=== PATIENT | female | born 1945 | race Caucasian/White ===

== ENCOUNTER 2017-03-11 07:12 | Day surgery (SDC) | payer MEDICARE, OTHER ==
[~2017-03-11] VITALS: Ht 162.6 cm; Wt 73.6 kg
[2017-03-11 07:19] LABS: BASOPHILS 0.4 % (0-2); EOSINOPHILS 4.4 % (0-7); HEMATOCRIT 35.9 % (36.0-48.0); HEMOGLOBIN 11.7 g/dL (12-16); MCH 29.8 pg (26.0-34.0); MCHC 32.6 g/dL (31.0-37.0); MCV 91.6 fL (80.0-100.0); MEAN PLATELET VOLUME 9.3 fL (7.4-10.4); NEUTROPHILS 54.2 % (40-80); RBC 3.92 10x6/uL (4.00-5.40); WBC 5.2 10x3/uL (4.8-10.8)
[2017-03-11 07:33] LABS: ALBUMIN 3.3 g/dL (3.4-5.0); ANION GAP 9.9 mmol/L (8-16); BILIRUBIN - TOTAL 0.19 mg/dL (0.2-1.3); CALCIUM 8.7 mg/dL (8.5-10.1); CARBON DIOXIDE 29.6 mmol/L (21.0-32.0); CREATININE - SERUM 1.1 mg/dL (0.6-1.3); POTASSIUM - SERUM 4.5 mmol/L (3.5-5.1); PROTEIN - SERUM 6.5 g/dL (6.4-8.2)
[2017-03-11 07:34] LABS: PLATELET COUNT 139 10x3/uL (130-400)
[2017-03-11 08:29] VITALS: BP 147/73
--- NOTE | 2017-03-11 09:26 | NUR ---
RECIEVED TO ROOM FROM ER VIA STRETCHER WITH ARM STABALIZED HAS NOTED LEFT HUMERAL FRACTURE. FOR OR IN AM WITH DR PISANO PT GIVEN DILAUDED LOCK PLATER PER ORDER. ORINETED TO ROOM AND STAFF CALL LIGHT INREACH SIDE RAILS UP X 2 BED ALARM ON.
[2017-03-11 12:34] VITALS: BP 164/78
[2017-03-11 15:32] VITALS: BP 164/78; Ht 162.6 cm; Wt 73.6 kg
[2017-03-11 16:03] VITALS: BP 153/60
--- NOTE | 2017-03-11 18:49 | NUR ---
PT RESTING WELL AT [facility] HAS ORDER FOR SLING TO LEFT ARM WILL PLACE PER ORDER
[2017-03-11 20:00] VITALS: BP 151/86
--- NOTE | 2017-03-11 21:35 | NUR ---
PATIENT DROPPED HER MEDICATIONS ON THE FLOOR WHEN SHE WAS TAKING HER EVENING MEDS. I PULLED NEW MEDS FROM THE PYXIS AND ADMINISTERED THEM. ASSISTED THE PATIENT ON AND OFF THE BEDPAN AND REPOSITIONED HER IN THE BED WITH ALISE CARTER. I ALSO CHECKED THE PATIENT'S BLOOD SUGAR, RESULTS 161. PATIENT REFUSED HER INSULIN. PATIENT'S BED IN LOWEST POSITION, CALL LIGHT WITHIN REACH, AND BED ALARM ON. ENCOURAGED THE PATIENT TO CALL IF SHE HAS FURTHER NEEDS.
[2017-03-12] VITALS: BP 144/78
[2017-03-12] MEDS ORDERED: HYDROCODON-ACE1 EAC9 PO (03:07)
[2017-03-12] MEDS ORDERED: NEURONTIN600 MG PO (03:07)
[2017-03-12] MEDS ORDERED: NEXIUM20 MG PO (03:09)
[2017-03-12] MEDS ORDERED: GLUCOPHAGE500 MG PO (03:12)
[2017-03-12] MEDS ORDERED: GLIPIZIDE10 MG PO (03:14)
[2017-03-12] MEDS ORDERED: PAXIL20 MG PO (03:14)
[2017-03-12] MEDS ORDERED: LIBRIUM 10 MG C10 MG PO (03:15)
[2017-03-12] MEDS ORDERED: ECOTRIN325 MG PO (03:18)
[2017-03-12] MEDS ORDERED: FISH OIL 1,2001 CAP PO (03:18)
[2017-03-12] MEDS ORDERED: PROTONIX20 MG PO (03:19)
[2017-03-12] MEDS ORDERED: CITRACAL + D E1 EACH PO (03:20)
[2017-03-12] MEDS ORDERED: FOLBIC RF TABL1 EACH PO (03:24)
[2017-03-12] MEDS ORDERED: LOTREL 5/10 MG1 CAP PO (03:26)
[2017-03-12 04:00] VITALS: BP 150/73
[2017-03-12 06:31] LABS: BASOPHILS 0.3 % (0-2); HEMATOCRIT 33.7 % (36.0-48.0); IMMATURE GRANULOCYTES 0.3 % (0-5); LYMPHOCYTES 27.4 % (15-50); MCH 29.7 pg (26.0-34.0); MCHC 32.6 g/dL (31.0-37.0); MCV 91.1 fL (80.0-100.0); MEAN PLATELET VOLUME 9.7 fL (7.4-10.4); MONOCYTES 9.9 % (2-11); NEUTROPHILS 59.1 % (40-80); PLATELET COUNT 142 10x3/uL (130-400); RDW 13.6 % (11.5-14.5); WBC 6.2 10x3/uL (4.8-10.8)
[2017-03-12 07:00] LABS: ANION GAP 10.2 mmol/L (8-16); CALCIUM 8.4 mg/dL (8.5-10.1); CARBON DIOXIDE 28.2 mmol/L (21.0-32.0); CREATININE - SERUM 0.9 mg/dL (0.6-1.3); POTASSIUM - SERUM 4.4 mmol/L (3.5-5.1)
[2017-03-12 07:50] VITALS: BP 110/88
--- NOTE | 2017-03-12 07:50 | NUR ---
PT ASSESSMENT COMPLETE ASSISTED UP TO BATHROOM TO VOID AT THIS TIME. PAIN TOLERATED WELL WITH DILAUDID HOUSE BUILDER NPO FOR OR TODAY WITH DR PISANO FOR HUMERAL NAILING
--- NOTE | 2017-03-12 13:26 | NUR ---
MAGDALENA RELEIVED KAMARI AT 1320.
--- NOTE | 2017-03-12 14:33 | NUR ---
DR. Phan CONSULTED ABOUT BLOOD PRESSURE. NO TREATMENT AT THIS TIME.
[2017-03-12 14:46] VITALS: BP 150/80
--- NOTE | 2017-03-12 15:03 | NUR ---
RECIEVED TO ROOM 2228 VIA BED FROM RR PT AROUSED TO VERBAL STIMULI ANGRY WHEN AROUSED. VITAL SIGNS WITH IN NORMAL LIMITS.
--- NOTE | 2017-03-12 15:37 | NUR ---
PATIENT IS BACK FROM SURGERY. RESTING QUIETLY WITH EYES CLOSED. NO SIGNS OF DISTRESS NOTED. AT BEDSIDE. PATIENT IS RECIEVING OXYGEN VIA NASAL CANNULA AT 2.5L/MIN.
--- NOTE | 2017-03-12 18:15 | NUR ---
Patient Name: ALLIE SANCHEZ Admission Status: ER Accout number: [id number] Admission Date: 03-11-2017 : 1945 Admission Diagnosis: Attending: LUISITO Current LOS: 1 Anticipated DC Date: 03-15-2017 Planned Disposition: Home Primary Insurance: MEDICARE A & B Discharge Planning Comments: CM MET WITH PATIENT AND SPOUSE (ZACH) REGARDING D/C NEEDS AND PLANS. SPOUSE STATED HE WILL DRIVE HER HOME AT DISCHARGE. PATIENT IS INDEPENDENT WITH HER CARE AND HAS A WALKER, WHEELCHAIR, BS COMMODE, SHOWER CHAIR, AND GLUCOMETER AT HOME. PATIENT DOES NOT CHECK SUGAR REGULARLY. PATIENT HAS 1 STEP W/O RAILS TO ENTER HOME AND NO STAIRS INSIDE. PATIENTS PCP IS DR. BOLAND AND USES [facility]. PATIENTS SPOUSE DOES NOT THINK SHE WILL NEED HOME HEALTH AND WANTS TO WAIT AND SEE FROM DOCTOR IF NEEDED. CM WILL CONTINUE TO FOLLOW PATIENT WITH D/C NEEDS AND PLANS. PCP DR. BOLAND [facility]- [phone] ZACH (SPOUSE) [phone] [place] [employer] Hydraulic Press Operator: Dafne Davis Is the patient Alert and Oriented? Yes 0 * How many steps to enter\exit or inside your home? 1 0 * PCP DR. BOLAND 0 * Pharmacy [facility] 0 * Preadmission Environment Home with Family 0 * ADLs Independent 0 * Equipment Bedside Commode Glucometer Shower Chair Walker Wheelchair 0 * List name and contact numbers for known caregivers / representatives who currently or will assist patient after discharge: ZACH (SPOUSE) [phone] * Community resources currently utilized None 0 * Additional services required to return to the preadmission environment? Yes 0 * Can the patient safely return to the preadmission environment? Yes 0 * Has this patient been hospitalized within the prior 30 days at any hospital? No 0 Grand Total: 0
--- NOTE | 2017-03-12 19:30 | NUR ---
PT AMBULATED TO RESTROOM X1 ASSIST BY PROGRAM EVALUATION CONSULTANT PER PT'S REQUEST.
[2017-03-12 20:00] VITALS: BP 152/77
--- NOTE | 2017-03-12 20:00 | NUR ---
PT RECEIVED SITTING UP IN BED. ASSESSMENT COMPLETED PER FLOWSHEET. PT NOTED TO HAVE INCONTINENT BOWEL EPISODE. PT GIVEN BED BATH AND LINENS CHANGED. ASSESSMENT COMPLETED PER FLOWSHEET. BED IN LOW POSITION. SIDE RAILS UP X2. BED IN LOW POSITION.
--- NOTE | 2017-03-12 21:00 | NUR ---
PT REQUESTS TO USE BED HARO. PT STATES, "I CAN'T GET UP TO USE THE BATHROOM. MY DOCTOR TOLD ME NOT TO STAND OR MOVE AND TO STAY IN BED SINCE I HAD SURGERY TODAY." PT ASSISTED ON BED HARO, PT VOIDED.
--- NOTE | 2017-03-12 21:18 | NUR ---
PATIENT RESTING IN BED WITH NO SIGNS OF DISTRESS AND DENIES NEEDS AT THIS TIME. CHECKED PATIENT'S BLOOD GLUCOSE, RESULTS 190. BED IN LOWEST POSITION AND CALL LIGHT WITHIN REACH. ENCOURAGED PATIENT TO CALL IF SHE HAS NEEDS.
--- NOTE | 2017-03-12 22:30 | NUR ---
PT REMINDED MULTIPLE TIMES OF KEEPING ARM IN SLING. PT NOTED TO BE ATTEMPTING TO STRAIGHTEN ARM OUT AND EXTEND TO SIDE OF BED WHILE LAYING DOWN MULTIPLE TIMES. PT ARM PLACED BACK IN SLING. PT READJUSTED IN BED. PT ATTEMPTS TO KEEP HOLD OF SIDE RAILS WHEN BEING PULLED UP IN BED, REDIRECTED MULTIPLE TIMES TO KEEP HANDS OVER CHEST WHEN BEING PULLED UP IN BED. PT INSTRUCTED TO TUCK CHIN FORWARD WHEN BEING ADJUSTED IN BED, PT VERBALIZED UNDERSTANDING BUT LAID HEAD BACK WHEN BEING READJUSTED IN BED. PT CURRENTLY SITTING UP IN BED. DENIES NEEDS AT THIS TIME.
[2017-03-13] VITALS (7 sets, daily range): BP systolic 123–188; BP diastolic 55–86
--- NOTE | 2017-03-13 00:40 | NUR ---
THIS PETROLEUM ANALYST TO PT'S ROOM TO ADMINISTER PRN TYLENOL FOR TEMP OF 100.3. PT DENIES NEEDS AT THIS TIME. THIS PETROLEUM ANALYST INFORMED PT THAT THIS PETROLEUM ANALYST WILL RETURN TO RECHECK TEMPERATURE.
--- NOTE | 2017-03-13 02:00 | NUR ---
THIS INSURANCE SPECIAL AGENT ENTERED PT'S ROOM @ 0100 IN RESPONSE TO CALL LIGHT AND PT YELLING OUT. UPON ENTERING ROOM, OBSERVED PT SITTING UP ON FLOOR LEANED ON CHAIR TOWARDS LEFT SIDE. WHEN ASKED WHAT HAPPENED, PT YELLED AT THIS INSURANCE SPECIAL AGENT, "YOU SAID YOU WOULD BE RIGHT BACK!" THIS INSURANCE SPECIAL AGENT REMINDED PT THAT THIS NURSE STATED THIS NURSE WOULD RETURN TO RECHECK TEMPERATURE. PT CONTINUED TO BE UPSET. WHEN ASKED WHAT PT WAS DOING TO FALL, PT STATED, "I WAS GOING TO GO SIT IN THAT CHAIR. I STOOD UP AND PEED, THEN SLIPPED IN IT." PT NOTED TO BE WEARING NONSKID SOCKS. PT NOTED TO HAVE VOIDED Q1HR SINCE BEGINNING OF SHIFT REQUIRING LINEN CHANGE. WHEN ASKED ABOUT PAIN LEVEL, PT STATES, "IT'S OK." PT THEN STATED PAIN TO LEFT ARM TO BE A 5. PT DENIES ANY NEW PAIN. PT DENIES HITTING HEAD UPON FALLING. PAGED DR. PISANO AND TO DR. PISANO'S WEB SITE ADMIN, [place]. RECEIVED CALL BACK FROM BOTH FARIDA AND DR. PISANO, NEW ORDERS RECEIVED FOR X-RAY TO LEFT HUMERUS. DR. PISANO NOTIFIED OF PT CONFUSION TO SITUATION. DR PISANO STATES HE WILL BE HERE IN AM. ATTEMPTED TO NOTIFY PT'S SPOUSE (ZACH SANCHEZ), NO ANSWER.
--- NOTE | 2017-03-13 02:00 | NUR ---
TEMPERATURE 98.6 F AXILLARY.
--- NOTE | 2017-03-13 03:05 | NUR ---
FALL RISK ASSESSMENT UPDATED APPRORPIATELY. YELLOW WRIST BAND PLACED ON PT, YELLOW FALL STAR ON PT'S DOOR, RAMANDEEP ALARM PUT IN PLACE AND WORKING.
[2017-03-13 05:57] LABS: HEMATOCRIT 32.3 % (36.0-48.0); HEMOGLOBIN 10.6 g/dL (12-16)
--- NOTE | 2017-03-13 07:08 | NUR ---
PT NOTED TO BE PEELING BACK TAPE ON IV. PT REDIRECTED. PT STATES, "WELL IT IS COMPLETELY OUT!" PT REDIRECTED AND INFORMED IV STILL IN PLACED. 30 MINUTES LATER, PT IV NOTED TO BE PULLED PARTIALLY OUT, CATHETER BENT. IV REMOVED, THIS MECHANIC DRIVER ATTEMPTED TO RESITE IV X2 IN RIGHT FOREARM, NO SUCCESS. ANOTHER MECHANIC DRIVER RESITED IV TO RIGHT CHEST.
--- NOTE | 2017-03-13 08:36 | NUR ---
PT RESTING IN BED WITH EYES OPEN CALL LIGHT IN REACH WILL MONITER PT STATES SHE HAS PAIN OF 4 PT ON VACUUM PAN OPERATOR
--- NOTE | 2017-03-13 08:48 | OP ---
PATIENT NAME: ALLIE SANCHEZ MEDICAL RECORD: [id number] :[birth year] LOCATION:[id number] ADMISSION DATE:03/11/17 SURGEON: LUPE PISANO MD DATE OF OPERATION: 03/11/2017 Orthopedic Surgery Operative Note PREOPERATIVE DIAGNOSIS: Left midshaft humerus fracture. POSTOPERATIVE DIAGNOSIS: Left midshaft humerus fracture. PROCEDURE: Intramedullary rodding in the left midshaft humerus fracture. SURGEON: Lupe Pisano MD. ANESTHESIA: General. INTRAOPERATIVE COMPLICATIONS: None. SUMMARY OF PATHOLOGIC FINDINGS: Essentially none. OPERATIVE SUMMARY IN DETAIL: After obtaining the appropriate preoperative orthopedic surgery consent as well as anesthetic consultation, evaluation and clearance, the patient was brought to the operating room and placed on the operating table in supine position. After adequate general laryngeal mask airway anesthesia was administered, the patient was placed in a beach chair position. All pressure points were well padded. She was held firmly to the operating table using the vacuum pack suction system. Left upper extremity and shoulder were then prepped and draped in a routine sterile fashion. The arm was held Trimano traction device. Fluoroscopy was brought in with good visualization. A small incision was made over the tip of the greater tuberosity of the humerus. An awl was used to make a guide point. A ball-tipped guidewire was easily passed to the fracture. Serial and sequential reaming was done to a 7.5, size 7 x 210 bobby was put in, fixed adequate proximally and distally under fluoroscopic guidance. Having completed this, the wounds were copiously irrigated and closed with 2-0 Vicryl followed by skin rachel. Final radiographs were taken and submitted for radiologist review. The patient was awakened, taken to recovery room in stable condition. All final needle and sponge counts were correct. TRANSINT:[id number] Voice Confirmation ID: [id number] DOCUMENT ID: [id number] LUPE PISANO MD at 0848 CC: [id number] DICTATION DATE: 03/12/17 1407 WAGE AND HOUR INVESTIGATOR: 03/12/17 2218 ADM IN [id number] [place] [address]
[2017-03-13] MEDS ORDERED: PERCOCET 10/3251 TA1 PO (09:37)
--- NOTE | 2017-03-13 12:44 | NUR ---
PT AOX4 RESP EVEN AND NONLABORED IV TO RIGHT BREAST PATENT AND INTACT. IV TO RIGHT WRIST PATENT AND INTACT PT DENIES NEEDS AT THIS TIME. PT HERE FOR RIGHT HUMEROUS FRACTURE AT THIS TIME. SRX2 CALL LIGHT WITHIN REACH WILL CONTINUE TO MONITOR
--- NOTE | 2017-03-13 14:43 | NUR ---
Rehab Note- Acute Rehab Prescreen order received. Spoke with the patient and Fernanda with case management. Awaiting Physical therapy eval. Will plan on admitting the patient to acute rehab tomorrow. Thank you for this referral! Emelia Rojo RN Clinical Liaison, [facility] Re[facility]
--- NOTE | 2017-03-13 14:46 | NUR ---
Patient Name: ALLIE SANCHEZ Encounter No: [id number] : 1945 Primary Insurance: MEDICARE A & B Anticipated DC Date: 03-15-2017 Planned Disposition: Home External Planned Provider: Inpatient Rehab accepted and will admit on Wednesday. DCP follow-up note: CM received call that patient's discharge has been held as patient and her spouse both report that he cant take care of patient at home. Patient in observation status and will not qualify for rehab at a skilled level unless she can private pay. CM received order for PT/OT eval and order to consult Inpatient Rehab. Cm spoke to Emelia who stated they will admit patient to rehab Wednesday. Patient and spouse in agreement for Inpatient Rehab. CM will continue to follow and assist as needed with dc plans/needs. Fernanda Sainz Rn, [facility] [phone]
--- NOTE | 2017-03-13 17:55 | NUR ---
PT RESTING IN BED WITH EYES OPEN CALL LIGHT IN REACH NO PROBLEMS WILL MONITER
--- NOTE | 2017-03-13 19:50 | NUR ---
PT C/O SHOULDER PAIN WAS MEDICATED WITH PERCOCET PER ORDER. WILL CONTINUE TO OBSERVE FOR NEEDS. C/L IN REACH AT BEDSIDE.
--- NOTE | 2017-03-13 20:05 | NUR ---
REC'D IN BED AWAKE AND ALERT WITH NOTED CONFUSION AT TIMES. RESP EVEN AND UNLABORED WITH NO DISTRESS NOTED. ASSESSMENT COMPLETED. AT BEDSIDE. C/L IN REACH AT BEDSIDE.
[2017-03-14] VITALS: BP 142/74
--- NOTE | 2017-03-14 02:52 | NUR ---
PT IS ASLEEP WITH LIGHTLY SNORING RESPIRATIONS. THERE IS NO DISTRESS NOTED. THE BED IS LOW, RAILS UP X'S 2 WITH THE CALL LIGHT AT HAND.
[2017-03-14 04:00] VITALS: BP 150/77
[2017-03-14 06:38] LABS: HEMATOCRIT 30.8 % (36.0-48.0)
--- NOTE | 2017-03-14 07:20 | NUR ---
PATIENT RECEIVED SITTING UP ON SIDE OF BED ALERT. NO SIGNS OF DISTRESS NOTED. BED IN LOW POSITION. CALL LIGHT IN REACH.
[2017-03-14 08:22] VITALS: BP 144/68
--- NOTE | 2017-03-14 08:28 | NUR ---
PATIENT SITTING UP ON SIDE OF BED EATING BREAKFAST. TOLERATING WELL. SCHEDULED MEDICATION ADMINISTERED. SIDE RAILS UP X2. BED IN LOW POSITION. CALL LIGHT IN REACH.
--- NOTE | 2017-03-14 11:06 | NUR ---
ACCU CHECK 206. INSULIN PER SLIDING SCALE. PERCOCET PER PRN ORDER. NO FURTHER NEEDS VOICED. SIDE RAILS UP X2. BED IN LOW POSITION. CALL LIGHT IN REACH.
[2017-03-14 14:04] VITALS: BP 135/67
--- NOTE | 2017-03-14 14:13 | NUR ---
ALERT IN BED WITH FAMILY PRESENT. NO SIGNS OF DISTRESS NOTED. ANTICIPATING D/C TO REHAB THIS AFTERNOON. SCHEDULED MEDICATION ADMINISTERED. DENIES NEEDS. SIDE RAILS UP X2. BED IN LOW POSITION. CALL LIGHT IN REACH.
--- NOTE | 2017-03-14 14:58 | NUR ---
REPORT CALLED TO REHAB. STEVE WHITE RECEIVING REPORT
--- NOTE | 2017-03-14 15:10 | NUR ---
PATIENT D/C TO REHAB. TRANSFERRED DOWNSTAIRS VIA WHEELCHAIR
== END 2017-03-14 15:18 | disposition home or self-care (01) ==
LOC: OBSVTIME → D.OPS 07:12 → D.MS 07:40 → OBSVTIME 07:40 → D.ER 07:40 → D.MS 07:40 → EDSTATUS 17:00 → D.MS 03-14 15:18 → D.OPS 03-14 15:18
PROVIDERS: Emergency Medicine; Orthopaedic Surgery
DX: S42.302A Unspecified fracture of shaft of humerus, left arm, initial encounter for closed fracture (principal); W19.XXXA Unspecified fall, initial encounter; I10 Essential (primary) hypertension; E11.9 Type 2 diabetes mellitus without complications; K21.9 Gastro-esophageal reflux disease without esophagitis; J44.9 Chronic obstructive pulmonary disease, unspecified; E66.9 Obesity, unspecified; Z01.812 Encounter for preprocedural laboratory examination; F32.9 Major depressive disorder, single episode, unspecified; R26.9 Unspecified abnormalities of gait and mobility; E78.5 Hyperlipidemia, unspecified; G89.29 Other chronic pain; G62.9 Polyneuropathy, unspecified

== ENCOUNTER 2017-03-14 15:18 | Inpatient (IN) | payer MEDICARE, OTHER ==
[~2017-03-14] VITALS: Ht 162.6 cm; Wt 89.4 kg
--- NOTE | 2017-03-14 15:15 | NUR ---
RECIEVED ON FLOOR FROM MED SURG TO ROOM 1118B.CL IN REACH.DRSG LEFT SHOULDER INTACT.[place]TE SLING IN PLACE.
[~2017-03-14 15:18] MED LIST: CITRACAL + D E1 EACH PO; ECOTRIN325 MG PO; FISH OIL 1,2001 CAP PO; FOLBIC RF TABL1 EACH PO; GLIPIZIDE10 MG PO; GLUCOPHAGE500 MG PO; HYDROCODON-ACE1 EAC9 PO; LIBRIUM 10 MG C10 MG PO; LOTREL 5/10 MG1 CAP PO; NEURONTIN600 MG PO; NEXIUM20 MG PO; PAXIL20 MG PO; PERCOCET 10/3251 TA1 PO; PROTONIX20 MG PO
[2017-03-14 16:27] VITALS: BP 137/63; BMI 33.9
[2017-03-14 20:00] VITALS: BP 115/64
--- NOTE | 2017-03-14 20:00 | NUR ---
PT IN BED WITH HOB UP FOR COMFORT, WATCHING TV. ALERT & ORIENTED BUT CONFUSED AND TIMES. NO O2. NO IV. BED IN LOWEST POSITION AND CALL LIGHT WITHIN REACH.
--- NOTE | 2017-03-15 | NUR ---
PT IN BED WITH HOB UP FOR COMFORT, EYES CLOSED, CHEST RISING AND FALLING. BED IN LOWEST POSITION AND CALL LIGHT WITHIN REACH.
--- NOTE | 2017-03-15 04:00 | NUR ---
PT SITTING ON SIDE OF BED. DRINKING WATER. CALL LIGHT WITHIN REACH.
--- NOTE | 2017-03-15 05:41 | NUR ---
PT RESTING QUIETLY IN BED, DENIES NEEDS. BED LOW. CL IN REACH.
[2017-03-15 07:24] LABS: BASOPHILS 0.4 % (0-2); EOSINOPHILS 4.3 % (0-7); HEMATOCRIT 29.5 % (36.0-48.0); HEMOGLOBIN 9.8 g/dL (12-16); IMMATURE GRANULOCYTES 0.4 % (0-5); LYMPHOCYTES 35.8 % (15-50); MCH 30.1 pg (26.0-34.0); MCHC 33.2 g/dL (31.0-37.0); MCV 90.5 fL (80.0-100.0); MEAN PLATELET VOLUME 9.7 fL (7.4-10.4); MONOCYTES 11.9 % (2-11); NEUTROPHILS 47.2 % (40-80); PLATELET COUNT 144 10x3/uL (130-400); RBC 3.26 10x6/uL (4.00-5.40); RDW 13.4 % (11.5-14.5); WBC 5.6 10x3/uL (4.8-10.8)
--- NOTE | 2017-03-15 07:30 | NUR ---
LAYING IN BED ON RT SIDE WITH LUE ELEVATED ON PILLOW. SLING IN PLACE TO LUE. SHE DENIES NEEDS BUT STATES HER ARM IS HURTING AND WANTS TO LAY STILL FOR A BIT.
[2017-03-15 07:31] LABS: ANION GAP 8.9 mmol/L (8-16); CALCIUM 8.4 mg/dL (8.5-10.1); CARBON DIOXIDE 32.3 mmol/L (21.0-32.0); POTASSIUM - SERUM 3.2 mmol/L (3.5-5.1)
[2017-03-15 12:17] VITALS: Ht 162.6 cm; Wt 89.4 kg
--- NOTE | 2017-03-15 12:46 | NUR ---
PAIN MEDS GIVEN ORDERED. UP WITH MIN ASST. VISITING PT AND SHE IS EATING LUNCH IN ROOM.
[2017-03-15 13:25] VITALS: BP 136/69
--- NOTE | 2017-03-15 16:41 | NUR ---
LAYING DOWN IN BED. PAIN MEDS EFFECTIVE IN CONTROLLING PAIN. LUE IN SLING. HAS FULL ROM TO LEFT HAND FINGERS.
--- NOTE | 2017-03-15 18:16 | NUR ---
SITTING ON SIDE OF BED EATING SUPPER. CALL LIGHT IN REACH
[2017-03-15 19:23] VITALS: BP 135/72
--- NOTE | 2017-03-15 19:35 | NUR ---
ASSISTED PT TO BATHROOM AND BACK TO BED, CALL LIGHT WITHIN REACH.
--- NOTE | 2017-03-15 20:40 | NUR ---
PT C/O PAIN IN LEFT SHOULDER, A LEVEL OF 7, PAIN MED GIVEN. CONTINUE MONITOR CLOSELY.
--- NOTE | 2017-03-15 21:10 | NUR ---
PT STATE SHE HAS LESS PAIN IN SHOULDER, A LEVEL OF 6, CONTINUE MONITOR CLOSELY.
--- NOTE | 2017-03-16 00:50 | NUR ---
PT C/O IN ARM,A SCALE OF 8, PAIN MED GIVEN. CONTINUE MONITOR CLOSELY.
--- NOTE | 2017-03-16 00:52 | NUR ---
ASSISTED PT TO BATHROOM AND BACK TO BED. BED IN LOW POSITION CALL LIGHT WITHIN REACH.
--- NOTE | 2017-03-16 01:00 | NUR ---
PT RESTING, EYES CLOSED. BED LOW. CL IN REACH.
--- NOTE | 2017-03-16 01:36 | NUR ---
PT STATE LESS PAIN IN ARM, A SCALE OF 5, CONTINUE MONITOR CLOSELY.
--- NOTE | 2017-03-16 03:42 | NUR ---
PT REST QUIETLY IN BED WITH EYE CLOSE, BED IN LOW POSITION, CALL LIGHT WITHIN REACH.
--- NOTE | 2017-03-16 08:16 | NUR ---
REFUSED TO EAT BREAKFAST THIS EARLY. DENIES INCREASED PAIN OR NEEDS. CALL LIGHT IN REACH
--- NOTE | 2017-03-16 09:41 | RHP ---
PATIENT: ALLIE SANCHEZ MEDICAL RECORD: [id number] ACCOUNT: [id number] LOCATION:[id number] : [birth year] ADMISSION DATE: 03/14/17 REHABILITATION HISTORY AND PHYSICAL EXAMINATION POST ADMISSION PHYSICIAN EXAMINATION Post-Admission Physical Examination and History and Physical. 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 HISTORY OF PRESENT ILLNESS: The patient admitted to inpatient rehab with late effects of CVA with a fall, status post left humeral nailing due to fracture. She is a 71-year-old female patient who was admitted to the acute hospital for left humeral fracture sustained from a fall after losing her balance in the bathtub. She had a surgical pinning of the left humerus on 03/12/2017. She lives at home with her . She does use a walker or cane due to impaired mobility from a stroke in 2012 prior to her fall. She would mainly use her cane and used it with her left hand only. She was independent with all ADLs and moderate independent with use of her SPC cane and rolling walker. She currently requires minimal to max assist with ADLs and moderate to max assist for mobility. She and her plan for her to return home and hopefully get her back to her prior level of functioning, coming to the rehab is really the only way that she will be able to return back home we feel. COMORBIDITIES: In this patient include falls, status post left humeral nailing due to humerus fracture, hyperglycemia, decreased H&H, IBS, gastroesophageal reflux disease, diabetes, arthritis, bladder spasms and former tobacco use, neuropathy, hypertension, depression, hyperlipidemia, chronic lumbago and diverticular disease. PAST MEDICAL HISTORY: Significant for diabetes, hypertension, depression, gastroesophageal reflux disease, irritable bowel syndrome, arthritis and chronic back pain. PAST SURGICAL HISTORY: Includes gallbladder surgery, tonsillectomy and adenoidectomy and she has had 3 C-sections in the past. ALLERGIES: ANY TYPE OF STATIN, CIPRO, KEFLEX, LATEX. CURRENT MEDICATIONS: Include benazepril 10 mg daily, amlodipine 5 mg daily, Os-Wallace with D daily. She is on Paxil 20 mg daily. She is on Protonix 40 mg daily, Glucotrol 10 mg b.i.d. q.a.c, she is on fish oil daily. She is on folic acid daily, aspirin 325 mg daily, MiraLax 17 grams in 8 ounces of water daily, Percocet 10/325 one tab q.4 hours p.r.n. for pain, metformin 500 mg t.i.d. with meals, Neurontin 600 mg t.i.d. and Librium 10 mg t.i.d. as needed. HABITS: No alcohol or tobacco use at this time. FAMILY HISTORY: Noncontributory. SOCIAL HISTORY: The patient hopes to return back home with her and get back to her prior level of functioning. HISTORY AND PHYSICAL [id number] ALLIE SANCHEZ REVIEW OF SYSTEMS: GENERAL: She denies weakness or fatigue. HEENT: She denies cold, cough, or congestion. CARDIOVASCULAR: Denies chest pain. PHYSICAL EXAMINATION: VITAL SIGNS: Stable, afebrile. GENERAL: Elderly female in no acute distress, alert upon exam. HEENT: Normocephalic, atraumatic. Mucosa moist. NECK: Supple, with no lymphadenopathy. LUNGS: Clear at this time. HEART: ____ rate and rhythm. ABDOMEN: Benign. EXTREMITIES: Consistent with postsurgical changes to her shoulder. NEUROLOGIC: Does have peripheral neuropathy. LABORATORY DATA: Her white count is 5.6, H&H of 9.8 and 29.5 and platelet count was noted to be 144. Her sodium is 139, potassium 3.2, BUN and creatinine of 13 and 1.0 and blood sugar is noted to be 207. ASSESSMENT: This is a 71-year-old female patient who is admitted to rehab with a working diagnosis of status post nailing to a humeral fracture and also frequent falls and debility. The patient has potential to make improvement. We instituted following multidisciplinary therapies including, but not limited to physical, occupational, respiratory, speech, nutritional services, prosthetics and orthotics. Given her complex condition and risk for more complications, rehabilitation services cannot be provided at a low level of care such as a nursing home facility. PLAN: 1. Admit to [facility] rehab for intensive inpatient therapy to include the following disciplines: A. Physical therapy to improve gait, all transfer skills and bed mobility to a modified independent level. B. Occupational therapy to improve activities of daily living to a modified independent level. C. Case management to assist with discharge planning and placement options. D. Nutrition to assist with nutritional needs. E. Rehabilitation nursing to assist in monitoring the patient's underlying medical conditions and to assist with any type of bowel or bladder management. 2. The patient's current medication and medical care will be continued. 3. The patient will be placed on standard fall precautions. 4. The patient's estimated length of stay is approximately 7-10 days. 5. We will discuss this patient during care team staff meeting this week. TRANSINT:[id number] Voice Confirmation ID: [id number] DOCUMENT ID: [id number] HISTORY AND PHYSICAL [id number] ALLIE SANCHEZ SCOTT MD at 0941 CC: [id number] DICTATION DATE: 03/15/17920 DIRECTOR OF EVENT MARKETING: 03/15/17 1144 ADM IN [id number] [place] [address]
[2017-03-16 09:46] VITALS: BP 121/62
--- NOTE | 2017-03-16 12:16 | NUR ---
EATING LUNCH IN ROOM. DENIES NEEDS. PAIN MEDS GIVEN ORDERED AND REQUESTED.
--- NOTE | 2017-03-16 16:15 | NUR ---
PATIENT ADMITTED TO REHAB, DR. BOLAND IS PCP. SHE HAS WALKER, BEDSIDE COMMODE, SHOWER CHAIR, WHEELCHAIR AND GLUCOMETER. SHE IS OF [place]. WILL CONTINUE TO FOLLOW WITH PATIENT
[2017-03-16 19:12] VITALS: BP 132/76
--- NOTE | 2017-03-16 20:05 | NUR ---
PT STATE SHE HAS SO MUCH PAIN IN ARM, A SCALE OF 8,PAIN MED GIVEN, MONITOR CLOSELY.
--- NOTE | 2017-03-16 21:05 | NUR ---
PT STATE HER PAIN ON ARM IS LESS, A SCALE OF 6, MONITOR CLOSELY.
--- NOTE | 2017-03-16 22:10 | NUR ---
PT REQUEST ICE PACK FOR ARM PAIN, BRING ICE PACK, PT STATE MAY BE SHE CAN HAS BETTER SLEEP.
--- NOTE | 2017-03-17 01:57 | NUR ---
PT REST QUIETLY IN BED,EYE CLOSE,BED IN LOW POSITION.
--- NOTE | 2017-03-17 02:13 | NUR ---
RESPIRATIONS REGULAR AND UNLABORED, NO S/S OF ACUTE DISTRESS.
--- NOTE | 2017-03-17 02:45 | NUR ---
ASSISTED PT TO BATHROOM AND BACK TO BED.
[2017-03-17 05:39] LABS: BASOPHILS 0.4 % (0-2); EOSINOPHILS 4.1 % (0-7); HEMATOCRIT 28.4 % (36.0-48.0); HEMOGLOBIN 9.5 g/dL (12-16); IMMATURE GRANULOCYTES 0.2 % (0-5); LYMPHOCYTES 41.9 % (15-50); MCH 30.3 pg (26.0-34.0); MCHC 33.5 g/dL (31.0-37.0); MCV 90.4 fL (80.0-100.0); MEAN PLATELET VOLUME 9.8 fL (7.4-10.4); MONOCYTES 14.4 % (2-11); PLATELET COUNT 168 10x3/uL (130-400); RBC 3.14 10x6/uL (4.00-5.40); RDW 13.8 % (11.5-14.5); WBC 4.7 10x3/uL (4.8-10.8)
[2017-03-17 05:49] LABS: CARBON DIOXIDE 32.3 mmol/L (21.0-32.0); POTASSIUM - SERUM 3.3 mmol/L (3.5-5.1)
[2017-03-17 08:29] VITALS: BP 138/60
--- NOTE | 2017-03-17 08:45 | NUR ---
UP AND ABOUT IN THERAPY ROOM.
--- NOTE | 2017-03-17 08:46 | NUR ---
PT RESTING IN BED WITH EYES OPEN CALL LIGHT IN REACH WILL MONITER
--- NOTE | 2017-03-17 14:46 | NUR ---
CARE TEAM MEETING: PATIENT WILL BE RA AT NEXT MEETING. WILL CONTINUE TO FOLLOW WITH PATIENT
--- NOTE | 2017-03-17 16:50 | NUR ---
PT RESTING IN BED WITH EYES OPEN CALL LIGHT IN REACH WILL MONITER
[2017-03-17 19:50] VITALS: BP 150/61
--- NOTE | 2017-03-17 19:50 | NUR ---
PT IN BED WITH HOB UP FOR COMFORT, WATCHING TV. ALERT & ORIENTED. NO 02. NO IV. BED IN LOWEST POSITION AND AND CALL LIGHT WITHIN REACH.
--- NOTE | 2017-03-17 20:15 | NUR ---
PT HAS VISITOR IN ROOM, INTERACTING, NO S/S OF ACUTE DISTRESS, RESPIRATIONS REGULAR AND UNLABORED.
--- NOTE | 2017-03-17 23:50 | NUR ---
PT IN BED WITH HOB UP FOR COMFORT, EYES CLOSED, CHEST RISING AND FALLING, BED IN LOWEST POSITION AND CALL LIGHT WITHIN REACH.
--- NOTE | 2017-03-18 03:50 | NUR ---
PT IN BED WITH HOB UP FOR COMFORT, EYES CLOSED, RESPIRATIONS EVEN AND UNLABORED, BED IN LOWEST POSITION AND CALL LIGHT WITHIN REACH.
--- NOTE | 2017-03-18 05:34 | NUR ---
ASSISTED PT TO BATHROOM AND BACK TO BED.
--- NOTE | 2017-03-18 08:00 | NUR ---
SHIFT ASSMT COMPLETED.DENIES NEEDS.
[2017-03-18 08:13] VITALS: BP 120/58
--- NOTE | 2017-03-18 12:00 | NUR ---
SITTING ON SIDE OF BED EATING LUNCH.
--- NOTE | 2017-03-18 19:30 | NUR ---
PT RESTING IN BED, SEMI FOLWER POSITION, EYES OPEN WATCHING TV.
[2017-03-18 20:58] VITALS: BP 135/66
--- NOTE | 2017-03-18 21:50 | NUR ---
PT HAS ICE PACK APPLIED TO LEFT SHOULDER. PT VERBALIZES INCREASED PAIN WITH USING THE TRAPEZE. PT RESPIRATIONS REGULAR AND UNLABORED.
--- NOTE | 2017-03-19 02:30 | NUR ---
PT RESTING QUIETLY, NO S/S OF ACUTE DISTRESS, EYES CLOSED.
[2017-03-19 06:53] LABS: BASOPHILS 0.4 % (0-2); EOSINOPHILS 4.6 % (0-7); HEMATOCRIT 28.9 % (36.0-48.0); HEMOGLOBIN 9.4 g/dL (12-16); IMMATURE GRANULOCYTES 0.2 % (0-5); MCH 29.7 pg (26.0-34.0); MCHC 32.5 g/dL (31.0-37.0); MCV 91.5 fL (80.0-100.0); MEAN PLATELET VOLUME 9.3 fL (7.4-10.4); MONOCYTES 10.1 % (2-11); NEUTROPHILS 40.7 % (40-80); PLATELET COUNT 192 10x3/uL (130-400); RBC 3.16 10x6/uL (4.00-5.40); RDW 13.8 % (11.5-14.5)
--- NOTE | 2017-03-19 06:54 | NUR ---
pt resting quietly, no s/s of acute distress.
[2017-03-19 07:09] LABS: ANION GAP 7.1 mmol/L (8-16); CALCIUM 8.8 mg/dL (8.5-10.1); CARBON DIOXIDE 33.7 mmol/L (21.0-32.0); POTASSIUM - SERUM 3.8 mmol/L (3.5-5.1)
--- NOTE | 2017-03-19 08:30 | NUR ---
Verbalized name and , complaining of left shoulder pain, routine medications given including an Oxycontin. Sling in place to left arm, elevated on pillow wit ice pack. Call light within reach.
[2017-03-19 10:48] VITALS: BP 152/70
--- NOTE | 2017-03-19 14:00 | NUR ---
Awake in bed, stating pain medication has not worked yet, repositioned arm in bed, dressing to left shoulder clean, dry and intact. Ice packs refreshed and positioned for comfort.
--- NOTE | 2017-03-19 14:40 | NUR ---
Therapist here to take patient over for therapy, chloe states she is hurting, but is willing to go down and she what she can do, routine Neurontin administered. Dr. Keller contacted per nurse Christian to see if x ray of left shoulder can be obtained. Orders received.
--- NOTE | 2017-03-19 17:46 | NUR ---
Sitting up in bed, sling in place and ice to left shoulder, prn pain medication administered for pain level of 6. No distress assessed, call light within reach.
--- NOTE | 2017-03-19 19:50 | NUR ---
ASSISTED PT TO BATHROOM AND BACK TO BED.
--- NOTE | 2017-03-19 21:10 | NUR ---
PT C/O HAS BEEN TO BATHROOM TWO TIMES WITHIN SHORT PERIOD OF TIME, STATE STOMACHE HAS A LOT GAS AND HAS WATERY STOOL, REPORT TO CHARGE, AND ANTIDIARRHEA MED GIVEN. MONITOR CLOSELY.
--- NOTE | 2017-03-19 22:50 | NUR ---
PT STATE HER STOMACHE FEEL BETTER, AND NO TOO MUCH GAS, NO WATERY STOOL.
--- NOTE | 2017-03-20 03:18 | NUR ---
PT. JUST RETURNED TO BED AFTER SITTING ON THE SIDE OF THE BED WHILE RECEIVING PAIN MED. FOR HER LUE. PT. WEARING HER SLING TO LUE AND KEEPING IT ELEVATED ON A PILLOW AND ICE NEEDED. CALL LIGHT WITHIN REACH.
[2017-03-20 03:31] VITALS: BP 147/61
--- NOTE | 2017-03-20 03:41 | NUR ---
ASSISTED PT TO BATHROOM AND BACK TO BED.
[2017-03-20 11:15] VITALS: BP 162/61
--- NOTE | 2017-03-20 13:31 | NUR ---
SITTING UP IN W/C IN ROOM VISITING WITH FRIEND. DENIES NEEDS. CALL LIGHT IN REACH
--- NOTE | 2017-03-20 17:01 | NUR ---
C/O NOT FEELING WELL AT PRESENT. HAS DIARRHEA AND HAS SOME NAUSEA. IN ROOM WITH PT.
--- NOTE | 2017-03-20 19:45 | NUR ---
PT ASSISTED TO BR. PT BACK IN BED AND DENIES NEEDS. WCTM. BED LOW. CL IN REACH.
[2017-03-20 19:55] VITALS: BP 143/61
--- NOTE | 2017-03-20 20:30 | NUR ---
PT HS MEDS ADMINISTERED. PT DENIES NEEDS. BED LOW. CL IN REACH.
--- NOTE | 2017-03-21 03:43 | NUR ---
PT RESTING, EYES CLOSED. BED LOW. CL IN REACH.
--- NOTE | 2017-03-21 08:13 | NUR ---
SITTING UP IN W/C IN ROOM EATING BREAKFAST. DENIES NEEDS
[2017-03-21 10:15] VITALS: BP 133/54
--- NOTE | 2017-03-21 15:00 | NUR ---
RESTING QUIETLY IN BED. EYES CLOSED. NO S/S DISTRESS. CALL LIGHT IN REACH
--- NOTE | 2017-03-21 18:47 | NUR ---
C/O NOT FEELING WELL TONIGHT. HAS HAD UPSET STOMACH ON AND OFF TODAY. REFUSED SUPPER.
--- NOTE | 2017-03-21 19:45 | NUR ---
PT C/O PAIN IN ARM, A SCALE OF 6, PAIN MED GIVEN. MONITOR CLOSELY.
--- NOTE | 2017-03-21 20:40 | NUR ---
PT STATE LESS PAIN IN ARM, A SCALE OF 5.
--- NOTE | 2017-03-21 21:40 | NUR ---
ASSISTED PT TO BATH ROOM AND BACK TO BED.
--- NOTE | 2017-03-21 21:40 | NUR ---
DRESSING CHANGE FOR PT, CLEAN WOUND WITH WOUND CLEANSER, COVER WITH ISLAND WOUND DRESSING.
--- NOTE | 2017-03-22 00:10 | NUR ---
PT RESTING QUIETLY, NO S/S OF ACUTE DISTRESS. RESPIRATIONS REGULAR AND UNLABORED.
--- NOTE | 2017-03-22 00:21 | NUR ---
PT REST QUIETLY IN BED, EYE CLOSE, BED IN LOW POSITION, CALL LIGHT WITHIN REACH.
[2017-03-22 02:03] VITALS: BP 121/57
--- NOTE | 2017-03-22 04:00 | NUR ---
IN BED, EYES CLOSED. NO DISTRESS NOTED.
--- NOTE | 2017-03-22 06:15 | NUR ---
VERIFIED PATENCY OF PATIENT'S LEFT AXILARY S/L BY 10ML NS FLUSH. PATIENT STATED HE HAD JUST BEEN TO BR AND FELT IV FLUID RUNNING DOWN HIS SIDE. S/L IS PATENT. PATIENT SUGGESTS THAT IT MIGHT RESIDUAL SEROUS FLUID FROM EDEMA WHICH HAS SUBSIDED OVER TIME.
[2017-03-22 06:52] LABS: BASOPHILS 0.4 % (0-2); EOSINOPHILS 4.6 % (0-7); HEMATOCRIT 30.7 % (36.0-48.0); HEMOGLOBIN 9.8 g/dL (12-16); IMMATURE GRANULOCYTES 0.2 % (0-5); LYMPHOCYTES 44.3 % (15-50); MCH 29.7 pg (26.0-34.0); MCHC 31.9 g/dL (31.0-37.0); MEAN PLATELET VOLUME 9.5 fL (7.4-10.4); MONOCYTES 11.8 % (2-11); NEUTROPHILS 38.7 % (40-80); WBC 4.7 10x3/uL (4.8-10.8)
[2017-03-22 06:55] LABS: PLATELET COUNT 255 10x3/uL (130-400)
[2017-03-22 07:23] LABS: ANION GAP 9.6 mmol/L (8-16); CALCIUM 8.9 mg/dL (8.5-10.1); CARBON DIOXIDE 31.3 mmol/L (21.0-32.0); CREATININE - SERUM 1.1 mg/dL (0.6-1.3); POTASSIUM - SERUM 3.9 mmol/L (3.5-5.1)
[2017-03-22 08:38] VITALS: BP 125/57
--- NOTE | 2017-03-22 16:45 | NUR ---
Patient lying in bed, pleasant and compliant with medication. She is wear her shoulder sling on left arm, using trapeze bar for transfer. Complaints of pain 7/10, percocet-10 given for pain. Patient is resting comfortably. Call light in reach, bed low, bed rails up X2 . Continue to monitor
--- NOTE | 2017-03-22 20:00 | NUR ---
PT IN BED WITH HOB UP FOR COMFORT. WATCHING TV. NO 02. NO IV. ALERT & ORIENTED. CONTINENT OF BOWEL AND BLADDER. PAIN LEVEL 05/17. LEFT SHOULDER IN SLING. ICE PACK TO SHOULDER. CANE. W/C. OVERHEAD TRAPEZE. LEFT SHOULDER DRESSING CHANGED DAY SHIFT. DRESSING IS C/D/I. STAND BY ASSIST. BED IN LOWEST POSITION AND CALL LIGHT WITHIN REACH.
[2017-03-22 22:07] VITALS: BP 125/72
--- NOTE | 2017-03-23 | NUR ---
PT IN BED WITH HOB UP FOR COMFORT. EYES CLOSED. CHEST RISING AND FALLING. BED IN LOWEST POSITION AND CALL LIGHT WITHIN REACH.
--- NOTE | 2017-03-23 04:00 | NUR ---
PT IN BED WITH HOB UP FOR COMFORT. EYES CLOSED. RESPIRATIONS EVEN AND UNLABORED. BED IN LOWEST POSITION AND CALL LIGHT WITHIN REACH.
--- NOTE | 2017-03-23 08:00 | NUR ---
SHIFT ASSMT COMPLETED.DENIES NEEDS.BED ALARM WAIVER SIGNED.UP INDEPENDENT IN ROOM.SLING IN PLACE LEFT SHOULDER.WILL CALL FOR ASSISTANCE NEEDED.
[2017-03-23 09:26] VITALS: BP 140/68
--- NOTE | 2017-03-23 12:00 | NUR ---
SITTING UP IN WC EATING LUNCH.
--- NOTE | 2017-03-23 17:10 | NUR ---
ASSISTED PT TO BATHROOM AND COME BACK TO BED.
[2017-03-23 21:02] VITALS: BP 132/73
--- NOTE | 2017-03-23 21:50 | NUR ---
PT STATE SHE HAS LESS PAIN IN ARM AFTER PAIN MED. A SCALE OF 5.
--- NOTE | 2017-03-24 00:59 | NUR ---
PT C/O PAIN IN ARM, A SCALE OF 7, PAIN MED GIVEN, MONITOR CLOSELY.
--- NOTE | 2017-03-24 01:45 | NUR ---
PT STATE SHE HAS LESS PAIN IN HER ARM, A SCALE OF 5. MONITOR CLOSELY.
--- NOTE | 2017-03-24 04:37 | NUR ---
PT REST QUIETLY IN BED, EYE CLOSE, BED LOW, CALL LIGHT WITHIN REACH.
--- NOTE | 2017-03-24 05:39 | NUR ---
RESTING QUIETLY, NO S/S OF ACUTE DISTRESS. RESPIRATIONS REGULAR AND UNLABORED.
[2017-03-24 06:25] LABS: BASOPHILS 0.4 % (0-2); EOSINOPHILS 4.3 % (0-7); HEMATOCRIT 33.3 % (36.0-48.0); HEMOGLOBIN 10.6 g/dL (12-16); IMMATURE GRANULOCYTES 0.2 % (0-5); LYMPHOCYTES 48.3 % (15-50); MCH 29.3 pg (26.0-34.0); MCHC 31.8 g/dL (31.0-37.0); MEAN PLATELET VOLUME 9.7 fL (7.4-10.4); MONOCYTES 10.2 % (2-11); NEUTROPHILS 36.6 % (40-80); RBC 3.62 10x6/uL (4.00-5.40); RDW 14.2 % (11.5-14.5); WBC 5.1 10x3/uL (4.8-10.8)
[2017-03-24 06:29] LABS: PLATELET COUNT 320 10x3/uL (130-400)
[2017-03-24 06:53] LABS: ANION GAP 11.6 mmol/L (8-16); CARBON DIOXIDE 31.2 mmol/L (21.0-32.0); POTASSIUM - SERUM 3.8 mmol/L (3.5-5.1)
--- NOTE | 2017-03-24 08:00 | NUR ---
SHIFT ASSMT COMPLETED.
[2017-03-24 09:06] VITALS: BP 141/73
--- NOTE | 2017-03-24 13:31 | NUR ---
Nutrition Monitoring and Eval: Pt continues at low nutritional risk at this time based on current chart review. RD will monitor pt progress per policy.
--- NOTE | 2017-03-24 16:00 | NUR ---
YONATHAN LT SHOULDER DC'D AND SITE STERI STRIPPED.ANTOINETTE WELL
--- NOTE | 2017-03-24 17:04 | NUR ---
CARE TEAM MEETING: PATIENT AND SPOUSE ATTENDED MEETING.PATIENT WILL DISCHARGE HOME ON 03/26/17. PATIENT HAS CHOSEN [facility] AND SHE WILL BE IN NEED OF A YOAN WALKER. WILL CONTINUE TO FOLLOW WITH PATIENT UNTIL DISCHARGED
[2017-03-24 19:54] VITALS: BP 131/59
--- NOTE | 2017-03-24 19:59 | NUR ---
PT RECEIVED IN SITTING UP IN BED WITH EYES OPEN AND CHEST RISING. NO CONCERNS NOTE AT THIS TIME. CALL LIGHT IN REACH. WILL CONTINUE TO OBSERVE.
--- NOTE | 2017-03-24 23:03 | NUR ---
PT IN BED WITH EYES CLOSED AND CHEST RISING. JUST RETURNED FROM BATHROOM. COMPLAINS OF PAIN 6/10 TO BILATERAL SHOULDERS AND BACK. PRN PAIN MEDICATIONS GIVEN PER JAN. ICE PACKS ON EACH SHOULDER. CALL LIGHT IN REACH. WILL CONTINUE TO OBSERVE.
--- NOTE | 2017-03-25 01:42 | NUR ---
PT IN BED WITH EYES CLOSED AND CHEST RISING. NO SIGN/SYMPTOMS OF DISTRESS NOTED. CALL LIGHT IN REACH. WILL CONTINUE TO OBSERVE.
--- NOTE | 2017-03-25 06:45 | NUR ---
PT IN BED WITH EYES CLOSED AND CHEST RISING. NO SIGN/SYMPTOMS OF DISTRESS NOTED. RECEIVED AM MEDICATIONS PER MAR WITHOUT DIFFICULTY. CALL LIGHT IN REACH.
[2017-03-25] MEDS ORDERED: PERCOCET 10/3251 TA1 PO (08:39)
--- NOTE | 2017-03-25 08:44 | NUR ---
SITTING ON SIDE OF BED,SLING IN PLACE.MEDS TAKEN WITHOUT DIFFICULTY.
[2017-03-25 09:43] VITALS: BP 173/62
--- NOTE | 2017-03-25 19:35 | NUR ---
PT RECEIVED UP IN BATHROOM RETURNING TO BED. NO CONCERNS MADE KNOWN AT THIS TIME. CALL LIGHT IN REACH. WILL CONTINUE TO OBSERVE.
[2017-03-25 22:11] VITALS: BP 134/62
--- NOTE | 2017-03-25 23:38 | NUR ---
PT IN BED WITH EYES CLOSED AND CHEST RISING AT THIS TIME. RECEIVED HS MEDICATIONS PER MAR WITH PRN PAIN MEDICATIONS FOR 6/10 PAIN TO BILATERAL SHOULDERS. NO OTHER CONCERNS MADE KNOWN. CALL LIGHT IN REACH. WILL CONTINUE TO OBSERVE.
--- NOTE | 2017-03-26 02:44 | NUR ---
PT IN BED WITH EYES CLOSED AND CHEST RISING. EASILY AROUSED TO VERBAL STIMULI. OBSERVED AMBULATING TO BATHROOM AND BACK TO BED WITH SLOW STEADY GAIT USING CANE. COMPLAINS OF PAIN TO BILATERAL SHOULDERS WITH PRN PAIN MEDICATION GIVEN PER JAN. CALL LIGHT IN REACH. WILL CONTINUE TO OBSERVE.
[2017-03-26 07:16] LABS: HEMATOCRIT 34.9 % (36.0-48.0); HEMOGLOBIN 11.2 g/dL (12-16); MCH 29.6 pg (26.0-34.0); MCHC 32.1 g/dL (31.0-37.0); MCV 92.3 fL (80.0-100.0); MEAN PLATELET VOLUME 9.5 fL (7.4-10.4); PLATELET COUNT 335 10x3/uL (130-400); RBC 3.78 10x6/uL (4.00-5.40); RDW 14.3 % (11.5-14.5)
[2017-03-26 07:28] LABS: WBC 7.1 10x3/uL (4.8-10.8)
--- NOTE | 2017-03-26 07:30 | NUR ---
SITTING UP IN BED EATING BREAKFAST. LUE IN SLING. PAIN MEDS EFFECTIVE. HAS OVERHEAD FRAME AND TRAPIEZE. USES CANE FOR AMBULATION ASST
[2017-03-26 07:55] LABS: EOSINOPHILS 5 % (0-7); LYMPHOCYTES 57 % (15-50); MONOCYTES 5 % (2-11); NEUTROPHILS 33 % (40-80); PLATELET ESTIMATE NORMAL
[2017-03-26 07:57] LABS: ANION GAP 11.7 mmol/L (8-16); CALCIUM 9.6 mg/dL (8.5-10.1); CARBON DIOXIDE 29.3 mmol/L (21.0-32.0)
[2017-03-26 09:02] VITALS: BP 129/90
--- NOTE | 2017-03-26 09:54 | NUR ---
PATIENT DISCHARGING HOME WITH FAMILY. [facility] WILL FOLLOW WITH PATIENT AT HOME, PATIENT CHOICE FORM FOR HOME HEALTH SIGNED AND FILED IN CHART.[facility] WILL DELIVER A YOAN WALKER. APPOINTMENTS : DR. BOLAND OFFICE PATIENT PCP WILL CALL PATIENT WITH AN APPOINTMENT. DR. PISANO 5. @ 3:00. [facility] FORM SIGNED, EXPLAINED AND FILED IN CHART. ORDERS HAVE BEEN FAXED WITH CONFORMATION RECIEVED
--- NOTE | 2017-03-26 12:10 | NUR ---
HERE TO TAKE PT HOME. WENT OVER D/C INSTRUCTIONS WITH PT AND SHE DENIED NEEDING ANY MEDS CALLED. SHE TOOK HER PAIN MED SCRIPTS WITH HER. ALL PERSONAL BELONGINGS SENT WITH PT. PAIN CONTROLLED AND LUE STILL IN SLING. STERI STRIPS IN PLACE TO LT SHOULDER. HAD RADIAL PULSES X2.
== END 2017-03-26 12:30 | disposition home health service (06) | DRG 561 ==
LOC: D.REHAB 15:18
PROVIDERS: ADMIT Emergency Medicine
DX: S42.302D Unspecified fracture of shaft of humerus, left arm, subsequent encounter for fracture with routine healing (principal); E11.65 Type 2 diabetes mellitus with hyperglycemia; K58.9 Irritable bowel syndrome, unspecified; K21.9 Gastro-esophageal reflux disease without esophagitis; M19.90 Unspecified osteoarthritis, unspecified site; Z91.81 History of falling; M54.5 Low back pain; I10 Essential (primary) hypertension; F32.9 Major depressive disorder, single episode, unspecified; G62.9 Polyneuropathy, unspecified; E11.21 Type 2 diabetes mellitus with diabetic nephropathy

== ENCOUNTER 2017-05-06 05:57 | Day surgery (SDC) | payer MEDICARE, OTHER ==
[2017-05-05 10:54] LABS: HEMATOCRIT 37.1 % (36.0-48.0); HEMOGLOBIN 11.9 g/dL (12-16); MCH 28.9 pg (26.0-34.0); MCHC 32.1 g/dL (31.0-37.0); MEAN PLATELET VOLUME 9.8 fL (7.4-10.4); RBC 4.12 10x6/uL (4.00-5.40); RDW 13.3 % (11.5-14.5); WBC 5.3 10x3/uL (4.8-10.8)
[2017-05-05 11:07] LABS: ANION GAP 11.8 mmol/L (8-16); CREATININE - SERUM 0.9 mg/dL (0.6-1.3); POTASSIUM - SERUM 4.8 mmol/L (3.5-5.1)
[2017-05-05 11:10] LABS: CALCIUM 9.6 mg/dL (8.5-10.1)
[~2017-05-06] VITALS: Ht 162.6 cm; Wt 86.2 kg
[~2017-05-06 05:57] MED LIST changes: +GLUCOTROL XL 1010 MG PO; +HYSINGLA ER20 MG PO; +MAG-OX 400 MG400 MG PO; +VITAMIN B-121000 MCG PO
[2017-05-06 09:04] VITALS: BP 138/59; Ht 162.6 cm; Wt 86.2 kg
[2017-05-06 09:24] LABS: ANION GAP 12.5 mmol/L (8-16); CALCIUM 9.2 mg/dL (8.5-10.1); CARBON DIOXIDE 27.8 mmol/L (21.0-32.0); POTASSIUM - SERUM 4.3 mmol/L (3.5-5.1)
[2017-05-06] MEDS ORDERED: PERCOCET 10/3251 TA1 PO (15:45)
--- NOTE | 2017-05-06 18:06 | NUR ---
1715 IV DC WITH CATHER TIP INTACT
--- NOTE | 2017-05-27 13:14 | OP ---
PATIENT NAME: ALLIE SANCHEZ MEDICAL RECORD: [id number] :45 LOCATION:D.OPS ADMISSION DATE: SURGEON: LUPE PISANO MD OPERATION DATE: 05/06/17 DATE OF OPERATION: 05/06/2017 Orthopedic Surgery Operative Note PREOPERATIVE DIAGNOSIS: Left proximal humerus fracture, status post early nonunion. POSTOPERATIVE DIAGNOSIS: Left proximal humerus fracture, status post early nonunion. PROCEDURE: Revision ORIF of the left humerus. SURGEON: Lupe Pisano MD. ANESTHESIA: General. INTRAOPERATIVE COMPLICATIONS: None. SUMMARY OF PATHOLOGIC FINDINGS: The patient had some mild displacement of the previous fixation that required operative revision ORIF. OPERATIVE SUMMARY IN DETAIL: After obtaining the appropriate preoperative orthopedic surgery consent as well as anesthetic consultation, evaluation and clearance, the patient was brought to the operating and placed on the operating table in supine position. After general laryngeal mask was administered, the patient was placed in the beach chair position. All pressure points were well padded. She was held firmly to the table using the vacuum pack suction system. Left upper extremity and shoulder were prepped and draped in routine sterile fashion. Under direct fluoroscopic guidance, an incision was made along the lateral aspect distal to the deltoid. This was taken down to the level of the fracture itself, which was cleaned of all fibrous tissue, it was held in a reduced position with large reduction forceps and then a 2 mm [place] cable was placed around it and used for correction over the nail. The nail was left in place. This improved the patient's alignment as well as radiographic appearance of both AP and lateral planes. Having completed this, the wound was irrigated and closed with #1 Vicryl followed by skin rachel. Sterile dressings were applied. The patient was awakened and taken to the recovery room in stable condition. All final needle and sponge counts were correct. TRANSINT:[id number] Voice Confirmation ID: [id number] DOCUMENT ID: [id number] ALIYA MATTHEW, LUPE RICHMOND at 1314 CC: [id number] DICTATION DATE: 05/21/17 1034 LEAD SYSTEMS ARCHITECT: 05/26/17 2340 [facility] 05/06/17 [place] [address]
== END 2017-05-06 17:30 | disposition home or self-care (01) ==
LOC: D.OPS 05:57 → D.PAN 11:30 → D.OPS 11:30
PROVIDERS: Anesthesiology
DX: S42.201K Unspecified fracture of upper end of right humerus, subsequent encounter for fracture with nonunion (principal); Z01.812 Encounter for preprocedural laboratory examination

== ENCOUNTER → 2017-06-25 13:10 | Outpatient (CLI) | payer MEDICARE, OTHER ==
[2017-05-06 09:04] VITALS: BMI 32.7
== END | disposition home or self-care (01) ==
LOC: D.US 13:10
DX: R60.9 Edema, unspecified (principal)

== ENCOUNTER → 2017-07-23 14:47 | Outpatient (CLI) | payer MEDICARE, OTHER ==
[2017-05-06 09:04] VITALS: BMI 32.7
== END | disposition home or self-care (01) ==
LOC: D.LAB 14:47
DX: E11.9 Type 2 diabetes mellitus without complications (principal); M79.673 Pain in unspecified foot

== ENCOUNTER 2017-09-16 05:31 | Day surgery (SDC) | payer MEDICARE, OTHER ==
[2017-09-15 10:11] LABS: HEMOGLOBIN 11.5 g/dL (12-16); MCHC 32.9 g/dL (31.0-37.0); MCV 85.4 fL (80.0-100.0); RBC 4.1 10x6/uL (4.00-5.40); RDW 14.6 % (11.5-14.5); WBC 4.9 10x3/uL (4.8-10.8)
[2017-09-15 10:20] LABS: ANION GAP 13.9 mmol/L (8-16); CALCIUM 9.2 mg/dL (8.5-10.1); CARBON DIOXIDE 27.8 mmol/L (21.0-32.0); CREATININE - SERUM 1.1 mg/dL (0.6-1.3); POTASSIUM - SERUM 3.7 mmol/L (3.5-5.1)
[~2017-09-16 05:31] MED LIST changes: +ALIGN4 MG PO; +DYAZIDE 37.5/251 CAP PO; +FOLATE0.4 MG PO; +GLIMEPIRIDE1 MG PO; +LOPERAMIDE HCL2 MG PO; +MIRALAX17 GM PO; -NEXIUM20 MG PO; +NEXIUM40 MG PO; +NORVASC5 MG PO; +ZOFRAN4 MG PO
[2017-09-16 14:27] VITALS: BMI 32.7
[2017-09-16 20:12] VITALS: BP 122/62
--- NOTE | 2017-09-16 20:30 | NUR ---
RECEIVED TO FLOOR FROM RECOVERY, ICE PACK ON LEFT SHOULDER, ORIENTED TO ROOM, CALL LIGHT IN REACH, SIGNAL MECHANIC IN USE FOR PAIN CONTROL, DENIES NEEDS, BED LOWEST POSITION, WILL CONTINUE TO MONITOR
[2017-09-17 00:08] VITALS: BP 122/62; BMI 33.4
[2017-09-17 04:00] VITALS: BP 139/62
--- NOTE | 2017-09-17 06:31 | NUR ---
SLEEPING, AROUSES TO VOICE EASILY
[2017-09-17 06:48] LABS: HEMATOCRIT 34.8 % (36.0-48.0); HEMOGLOBIN 11.6 g/dL (12-16)
--- NOTE | 2017-09-17 07:30 | NUR ---
AWAKE AND ALERT. ORIENTED X3. NO C/O AT THIS TIME. LEFT ARM IN SLING, DRESSING TO SAME DRY AND INTACT. LUNGS ARE CLEAR BILATERALLY, NO COUGH NOTED. SKIN IS INTACT WITHOUT REDNESS EXCEPT INCISION TO LEFT ARM ABOVE. IV TO RIGHT WRIST IS PATNET WITHOUT REDNESS AT INSERTION SITE. DENIES NEEDS. ENCOURAGED TO USE QUALITY RN ORDERED.
[2017-09-17] MEDS ORDERED: DILAUDID4 MG PO (09:10)
[2017-09-17 09:30] VITALS: BP 126/57
--- NOTE | 2017-09-17 10:29 | NUR ---
CM SPOKE WITH PATIENT ABOUT DISCHARGE PLANNING NEEDS. PATIENT LIVES WITH HER [place]ACH WHERE SHE WILL RETURN AT DISCHARGE. SHE DOES NOT WANT HH SET UP, THAT SHE HAS EVERYTHING SHE NEEDS. SHE WILL USE [facility] WHEN SHE IS CLEARED BY MD. SHE HAS A WALK IN SHOWER, WHEELCHAIR X 2, WALKER X 2. CALLED Gloria [facility]N TO LET HER KNOW THAT THE PATIENT HAS REFUSED HH AND SHE STATED IT WAS OK. CM WILL CONTINUE TO ASSIST NEEDED WITH DISCHARGE PLANNING NEEDS.
--- NOTE | 2017-09-17 11:00 | NUR ---
DISCHARGED TO HOME AMBULATORY WITH FAMILY. DISCHARGE INSTRUCTIONS GIVEN BOTH VERBALLY AND WRITTEN. ALL QUESTIONS ANSWERED. PATIENT AND VERBALIZED UNDERSTANDING OF SAME. NEEDED PRESCRIPTIONS GIVEN TO PATIENT. ALL BELONGINGS LEFT WITH PATIENT. IV TO RIGHT WIRST D/C WITH CATHETER INTACT.
--- NOTE | 2017-10-25 14:52 | OP ---
PATIENT NAME: ALLIE SANCHEZ MEDICAL RECORD: [id number] :45 LOCATION:D.OPS ADMISSION DATE: SURGEON: LUPE PISANO MD DATE OF OPERATION: 09/16/2017 PREOPERATIVE DIAGNOSIS: Left humeral fracture, possible nonunion. POSTOPERATIVE DIAGNOSIS: Left humeral fracture, possible nonunion. PROCEDURE: Left humeral nail hardware removal with revision of intramedullary rodding. SURGEON: Lupe Pisano MD ANESTHESIA: General. INTRAOPERATIVE COMPLICATIONS: None. SUMMARY OF PATHOLOGIC FINDINGS: When the bobby was removed, the fracture site still had enough flex that it required repeat rodding. INDICATIONS: This unfortunate lady had an IM rodding fallen and her bobby then protruded out to the superior aspect of the humeral head after it fell, attempts were made to hold this in place while it healed; however, the irritation of the proximal bobby on the undersurface of the acromion warranted revision. OPERATIVE SUMMARY IN DETAIL: After obtaining the appropriate orthopedic surgery consent as well as anesthetic consultation, evaluation and clearance, the patient was brought to the operating room and placed on the operating table in supine position. After general laryngeal mask was administered, the patient was placed in the beach chair position. All pressure points were well padded. She was held firmly to the operating table using the vacuum pack suction system. Left upper extremity and shoulder were prepped and draped in routine sterile fashion. The arm was held in the Arthrex Trimano arm holding device. Previously utilized incision was taken down and proximal bobby was readily visual, the proximal screw guide was then put into place. All screws were removed. The distal interlocking screw was removed and the bobby was taken out, then under direct fluoroscopic real time visualization, the fracture was noted to move more than I was comfortable with leaving along. At this point, the humerus was again reamed and a larger bobby from [place] was put into place at a lower depth and hopes that the patient would not create the same problem again. After proximal and distal interlocking, the wounds were irrigated and closed. Final radiographs were taken and submitted for radiologist review. The incisions were closed in the usual fashion. Sterile dressings were applied. The patient was awakened, taken to recovery in stable condition. All final needle and sponge counts were correct. TRANSINT:[id number] Voice Confirmation ID: [id number] DOCUMENT ID: [id number] OPERATIVE REPORT [id number] ALLIE SANCHEZ MD, LUPE RICHMOND at 1452 CC: [id number] DICTATION DATE: 10/25/17 1312 SHANK INSPECTOR: 10/25/17 1341 [facility] 09/17/17 [place] [id number] [place] [id number]
== END 2017-09-17 11:00 | disposition home or self-care (01) ==
LOC: D.MS 05:31 → D.OPS 05:31 → D.PAN 12:00 → D.OPS 12:00 → D.MS 19:16 → D.OPS 09-17 11:00
PROVIDERS: Anesthesiology; Orthopaedic Surgery
DX: T84.120A Displacement of internal fixation device of right humerus, initial encounter (principal); Y79.8 Miscellaneous orthopedic devices associated with adverse incidents, not elsewhere classified; S42.301A Unspecified fracture of shaft of humerus, right arm, initial encounter for closed fracture; S42.301K Unspecified fracture of shaft of humerus, right arm, subsequent encounter for fracture with nonunion

== ENCOUNTER → 2017-12-27 09:36 | Outpatient (CLI) | payer MEDICARE, OTHER ==
[~2017-12-27 09:36] MED LIST changes: +DILAUDID4 MG PO
[2017-12-27 10:32] LABS: BASOPHILS 0.7 % (0-2); EOSINOPHILS 3.5 % (0-7); HEMATOCRIT 33.9 % (36.0-48.0); LYMPHOCYTES 39.5 % (15-50); MCH 26.8 pg (26.0-34.0); MCHC 32.4 g/dL (31.0-37.0); MCV 82.5 fL (80.0-100.0); MEAN PLATELET VOLUME 9.1 fL (7.4-10.4); MONOCYTES 10.4 % (2-11); NEUTROPHILS 45.9 % (40-80); RBC 4.11 10x6/uL (4.00-5.40); RDW 15.4 % (11.5-14.5); WBC 6.9 10x3/uL (4.8-10.8)
[2017-12-27 10:35] LABS: PLATELET COUNT 213 10x3/uL (130-400)
[2017-12-27 10:39] LABS: HEMOGLOBIN A1C 6.3 % (4.8-6.0)
[2017-12-27 10:52] LABS: ALBUMIN 3.8 g/dL (3.4-5.0); BILIRUBIN - TOTAL 0.26 mg/dL (0.2-1.3); CALCIUM 8.7 mg/dL (8.5-10.1); CARBON DIOXIDE 31.3 mmol/L (21.0-32.0); CHOL - HDL RATIO 5.8 ratio (2.3-4.1); CREATININE - SERUM 1.1 mg/dL (0.6-1.3); LDL-HDL RATIO 3.9 ratio (1.5-3.5); POTASSIUM - SERUM 4.3 mmol/L (3.5-5.1); THYROID STIMULATING HORMONE 2.87 uIU/mL (0.36-3.74)
== END | disposition home or self-care (01) ==
LOC: D.LAB 09:36
PROVIDERS: Family Medicine
DX: Z00.00 Encounter for general adult medical examination without abnormal findings (principal); E11.9 Type 2 diabetes mellitus without complications; E78.81 Lipoid dermatoarthritis; E53.8 Deficiency of other specified B group vitamins; I10 Essential (primary) hypertension; K21.9 Gastro-esophageal reflux disease without esophagitis

== ENCOUNTER → 2018-01-03 12:50 | Outpatient (CLI) | payer MEDICARE, OTHER | END | disposition home or self-care (01) | LOC: D.MRI 12-29 13:00 | DX: M25.522 Pain in left elbow (principal) ==

== ENCOUNTER 2018-01-08 14:43 | Emergency (ER) | payer MEDICARE, OTHER | END 2018-01-08 17:42 | disposition home or self-care (01) | LOC: D.ER 14:43 | DX: S46.912A Strain of unspecified muscle, fascia and tendon at shoulder and upper arm level, left arm, initial encounter (principal); X58.XXXA Exposure to other specified factors, initial encounter; Y93.89 Activity, other specified; Y92.89 Other specified places as the place of occurrence of the external cause; M79.622 Pain in left upper arm; E11.9 Type 2 diabetes mellitus without complications; I10 Essential (primary) hypertension ==

== ENCOUNTER → 2018-06-02 14:12 | Outpatient (CLI) | payer MEDICARE, OTHER ==
[2018-06-02 14:51] LABS: ALBUMIN 3.7 g/dL (3.4-5.0); ANION GAP 10.6 mmol/L (8-16); BILIRUBIN - TOTAL 0.21 mg/dL (0.2-1.3); CALCIUM 8.9 mg/dL (8.5-10.1); CARBON DIOXIDE 29.8 mmol/L (21.0-32.0); CREATININE - SERUM 0.9 mg/dL (0.6-1.3); POTASSIUM - SERUM 4.4 mmol/L (3.5-5.1); PROTEIN - SERUM 7.2 g/dL (6.4-8.2)
== END | disposition home or self-care (01) ==
LOC: D.LAB 14:12
PROVIDERS: Family Medicine
DX: E11.9 Type 2 diabetes mellitus without complications (principal); I10 Essential (primary) hypertension

== ENCOUNTER 2019-05-23 08:00 | Outpatient (CLI) | payer MEDICARE, OTHER | END 2019-05-23 08:30 | disposition home or self-care (01) | LOC: D.MAMMO 08:00 | PROVIDERS: ATTEND Family Medicine | DX: Z12.31 Encounter for screening mammogram for malignant neoplasm of breast (principal) ==

== ENCOUNTER → 2020-04-26 12:40 | Outpatient (CLI) | payer MEDICARE, OTHER | END | disposition home or self-care (01) | LOC: D.RAD 12:40 | PROVIDERS: ATTEND Family Medicine | DX: M25.562 Pain in left knee (principal); M25.561 Pain in right knee ==

== ENCOUNTER → 2021-04-16 15:56 | Outpatient (CLI) | payer MEDICARE, OTHER ==
[2021-04-16 16:20] LABS: BASOPHILS 0.9 % (0-2); EOSINOPHILS 4.4 % (0-7); HEMATOCRIT 35.8 % (36.0-48.0); HEMOGLOBIN 11.6 g/dL (12-16); MCH 28.7 pg (26.0-34.0); MCHC 32.5 g/dL (31.0-37.0); MCV 88.4 fL (80.0-100.0); MEAN PLATELET VOLUME 6.8 fL (7.4-10.4); MONOCYTES 9.6 % (2-11); NEUTROPHILS 51.1 % (40-80); RBC 4.05 10x6/uL (4.00-5.40); RDW 14.7 % (11.5-14.5); WBC 5.9 10x3/uL (4.8-10.8)
[2021-04-16 16:22] LABS: PLATELET COUNT 222 10x3/uL (130-400)
[2021-04-16 16:43] LABS: ALBUMIN 3.6 g/dL (3.4-5.0); ANION GAP 11.5 mmol/L (8-16); BILIRUBIN - TOTAL 0.22 mg/dL (0.2-1.3); CALCIUM 8.6 mg/dL (8.5-10.1); CREATININE - SERUM 0.9 mg/dL (0.6-1.3); POTASSIUM - SERUM 4.5 mmol/L (3.5-5.1); THYROID STIMULATING HORMONE 2.08 uIU/mL (0.36-3.74)
== END | disposition home or self-care (01) ==
LOC: D.MAMMO 15:00 → D.LAB 15:56
PROVIDERS: ATTEND Family Medicine
DX: Z00.00 Encounter for general adult medical examination without abnormal findings (principal); E11.9 Type 2 diabetes mellitus without complications; I10 Essential (primary) hypertension